=== PATIENT | female | born 1975 | race Caucasian/White ===

== ENCOUNTER 2019-08-16 12:07 | Observation (INO) | payer BC ==
[2019-08-16] MEDS ORDERED: Sodium Chloride 0.9% 10 ML Syringe FLUSH PRN (12:10)
[2019-08-16] MEDS ORDERED: EPINEPHrine 1:10,000 1 MG/10 ML Syringe IVPUSH PRN (12:14)
[2019-08-16] MEDS ORDERED: Lidocaine 2% 100 MG/5 ML Syringe IVPUSH PRN (12:14)
[2019-08-16] MEDS ORDERED: Nitroglycerin 0.4 MG Tab.SL SL PRN (12:14)
[2019-08-16] MEDS ORDERED: Atropine 0.1 MG/ML 10 ML Syringe IVPUSH PRN (12:14)
[2019-08-16 13:27] LABS: ANION GAP 16.4 mmol/L (5-15); CHLORIDE,CL 103 mmol/L (98-115); SODIUM,NA 141 mmol/L (136-145)
--- NOTE | 2019-08-16 20:22 | PCM.DCSUM1 ---
Discharge Summary - Discharge Data Discharge Disposition: Home, Self-Care 01 Condition: Good - Referral to Home Health Primary Care Physician: PCP Not In Area - Discharge Diagnosis/Problem(s) (1) Chest pain SNOMED Code(s): 38670160 ICD Code: R07.9 - CHEST PAIN, UNSPECIFIED Status: Acute Current Visit: Yes - Discharge Plan *PRESCRIPTION DRUG MONITORING PROGRAM REVIEWED*: Not Applicable *COPY OF PRESCRIPTION DRUG MONITORING REPORT IN PATIENT COLLINS: Not Applicable Home Medications: Home Meds Cholecalciferol (Vitamin D3) [Vitamin D3] 2,000 unit PO DAILY 08/16/19 [History] Dexlansoprazole [Dexilant] 60 mg PO BEDTIME 08/16/19 [History] Ferrous Sulfate [Iron] 325 mg PO DAILY 08/16/19 [History] Folic Acid 1 mg PO DAILY 08/16/19 [History] Multivitamins/Minerals [Vitamins and Minerals] 1 tab PO DAILY 08/16/19 [History] buPROPion HCl [Wellbutrin Xl] 300 mg PO DAILY 08/16/19 [History] levonorgestreL [Mirena] 1 ea IUTERINE ASDIRECTED 08/16/19 [History] Oxygen Therapy Mode: Room Air - Patient Data Vitals - Most Recent: Last Vital Signs Temp 97.8 F 08/16/19 18:35 Pulse 89 08/16/19 18:35 Resp 16 08/16/19 18:35 BP 150/90 H 08/16/19 18:35 Pulse Ox 96 08/16/19 18:35 Weight - Most Recent: 256 lb 4.8 oz I&O - Last 24 hours: Intake & Output 08/16/19 08/16/19 08/16/19 06:59 14:59 22:59 Intake Total 200 Balance 200 Lab Results - Last 24 hrs: Laboratory Results - last 24 hr 08/16/19 08/16/19 08/16/19 Range/Units 12:45 12:45 16:30 WBC 7.46 (5.00-10.00) 10^3/uL RBC 4.85 (3.80-5.50) 10^6/uL Hgb 12.0 (12.0-16.0) g/dL Hct 37.4 (37.0-47.0) % MCV 77.1 L (82.0-92.0) fL MCH 24.7 L (27.0-31.0) pg MCHC 32.1 (32.0-36.0) g/dL RDW 17.4 H (11.5-14.5) % Plt Count 367 (150-400) 10^3/uL MPV 8.8 (7.4-10.4) fL Immature Gran % (Auto) 0.1 (0.0-5.0) % Neut % (Auto) 64.8 (50.0-70.0) % Lymph % (Auto) 27.1 (20.0-40.0) % [place] % (Auto) 5.8 (2.0-8.0) % Eos % (Auto) 1.7 (1.0-3.0) % Baso % (Auto) 0.5 (0.0-1.0) % Immature Gran # (Auto) 0.01 (0.00-0.50) 10^3/uL Neut # (Auto) 4.83 (2.50-7.00) 10^3/uL Lymph # (Auto) 2.02 (1.00-4.00) 10^3/uL [place] # (Auto) 0.43 (0.10-0.80) 10^3/uL Eos # (Auto) 0.13 (0.10-0.30) 10^3/uL Baso # (Auto) 0.04 (0.00-0.10) 10^3/uL Sodium 141 (136-145) mmol/L Potassium 3.6 (3.3-5.3) mmol/L Chloride 103 (98-115) mmol/L Carbon Dioxide 25.2 (21.0-32.0) mmol/L Anion Gap 16.4 H (5-15) mmol/L BUN 10 (6-25) mg/dL Creatinine 0.95 (0.51-1.17) mg/dL Est Cr Clr Drug Dosing 77.82 mL/min Estimated GFR (MDRD) > 60 mL/min Glucose 132 H (75 - 99) mg/dL Calcium 8.9 (8.7-10.3) mg/dL Total Bilirubin 0.3 (0.2-1.0) mg/dL AST 16 (15-37) U/L ALT 31 (12-78) U/L Alkaline Phosphatase 86 (46-116) IU/L Troponin I < 0.04 < 0.04 (0.00-0.070) ng/mL Total Protein 7.4 (6.4-8.2) g/dL Albumin 3.67 (3.00-4.80) g/dL 08/16/19 Range/Units 19:30 WBC (5.00-10.00) 10^3/uL RBC (3.80-5.50) 10^6/uL Hgb (12.0-16.0) g/dL Hct (37.0-47.0) % MCV (82.0-92.0) fL MCH (27.0-31.0) pg MCHC (32.0-36.0) g/dL RDW (11.5-14.5) % Plt Count (150-400) 10^3/uL MPV (7.4-10.4) fL Immature Gran % (Auto) (0.0-5.0) % Neut % (Auto) (50.0-70.0) % Lymph % (Auto) (20.0-40.0) % [place] % (Auto) (2.0-8.0) % Eos % (Auto) (1.0-3.0) % Baso % (Auto) (0.0-1.0) % Immature Gran # (Auto) (0.00-0.50) 10^3/uL Neut # (Auto) (2.50-7.00) 10^3/uL Lymph # (Auto) (1.00-4.00) 10^3/uL [place] # (Auto) (0.10-0.80) 10^3/uL Eos # (Auto) (0.10-0.30) 10^3/uL Baso # (Auto) (0.00-0.10) 10^3/uL Sodium (136-145) mmol/L Potassium (3.3-5.3) mmol/L Chloride (98-115) mmol/L Carbon Dioxide (21.0-32.0) mmol/L Anion Gap (5-15) mmol/L BUN (6-25) mg/dL Creatinine (0.51-1.17) mg/dL Est Cr Clr Drug Dosing mL/min Estimated GFR (MDRD) mL/min Glucose (75 - 99) mg/dL Calcium (8.7-10.3) mg/dL Total Bilirubin (0.2-1.0) mg/dL AST (15-37) U/L ALT (12-78) U/L Alkaline Phosphatase (46-116) IU/L Troponin I < 0.04 (0.00-0.070) ng/mL Total Protein (6.4-8.2) g/dL Albumin (3.00-4.80) g/dL Med Orders - Current: Current Medications Atropine Sulfate (Atropine 0.1 Mg/Ml) 0 mg IVPUSH ASDIRECTED PRN PRN Reason: Heart. Epinephrine HCl (Epinephrine 1:10,000) 1 mg IVPUSH ASDIRECTED PRN PRN Reason: Heart. Lidocaine HCl (Xylocaine 2%) 0 mg IVPUSH ASDIRECTED PRN PRN Reason: Heart. Nitroglycerin (Nitrostat) 0.4 mg SL ASDIRECTED PRN PRN Reason: Heart. Sodium Chloride (Saline Flush) 10 ml FLUSH Q8HR PRN PRN Reason: keep vein open
== END 2019-08-16 20:50 | disposition home or self-care (01) ==
LOC: KA.MS 12:23
PROVIDERS: ADMIT Nurse Practitioner Family; ATTEND Nurse Practitioner Family
DX: R07.89 Other chest pain (principal); F41.9 Anxiety disorder, unspecified; K21.9 Gastro-esophageal reflux disease without esophagitis; E66.9 Obesity, unspecified; D50.9 Iron deficiency anemia, unspecified; F32.9 Major depressive disorder, single episode, unspecified; K44.9 Diaphragmatic hernia without obstruction or gangrene; Z87.891 Personal history of nicotine dependence; Z88.0 Allergy status to penicillin; Z79.899 Other long term (current) drug therapy; Z82.49 Family history of ischemic heart disease and other diseases of the circulatory system; Z68.39 Body mass index [BMI] 39.0-39.9, adult
CPT/HCPCS: 36415; 71046; 80053; 84484; 85025; G0378